=== PATIENT | female | born 1995 | race Caucasian/White ===

== ENCOUNTER 2024-04-27 11:42 | Outpatient (CLI) | payer OTHER, SELFPAY ==
--- NOTE | ~2024-04-27 | US_ITS ---
EXAMINATION: US OB transvaginal DATE: 04/27/2024 12:09 INDICATION: Uncertain dates. . TECHNIQUE: Real-time transvaginal pelvic ultrasound was performed. COMPARISON: None. FINDINGS: The uterus measures 9.1 x 6.1 x 6.7 cm. There is an intrauterine gestational sac. A yolk sac is ident ified. The crown rump length measures 2.1 cm, which correlates with an estimated gestational a ge of 8 weeks and 5 day(s) (+/-) 5 day(s). heart motion is identified measuring 178 beats per m inute (bpm) by M-mode Doppler. There is a small subchronic hematoma. The ovaries are not visualized. There is no free fluid in the pelvis. IMPRESSION: 1. Single living intrauterine gestation with estimated date of delivery of 12/02/2024. 2. Small subchronic hematoma. Reviewed, dictated and finalized at location A. IMPRESSION: 1. Single living intrauterine gestation with estimated date of delivery of 11/21. 2. Small subchronic hematoma.
== END 2024-04-27 11:43 | disposition home or self-care (01) ==
PROVIDERS: PCP Nurse Practitioner; Visit Provider Nurse Practitioner
DX: Z36.9 Encounter for antenatal screening, unspecified (principal); Z3A.00 Weeks of gestation of pregnancy not specified
CPT/HCPCS: 76817

== ENCOUNTER 2024-05-22 08:12 | Outpatient (CLI) | payer OTHER, SELFPAY ==
--- NOTE | ~2024-05-22 | US_ITS ---
EXAMINATION: US OB limited DATE: 05/22/2024 08:32 INDICATION: Subchronic hematoma. TECHNIQUE: Real-time transabdominal pelvic ultrasound was performed. COMPARISON: Ultrasound 04/27/2024 FINDINGS: The uterus measures 11.6 x 8.4 x 10.1 cm. There is an intrauterine gestational sac with fetus. heart motion is identified measuring 167 beats per minute (bpm) by M-mode Doppler. There is a small subchronic hematoma measuring 2.8 x 1.3 x 2.0 cm. The ovaries are not visualized. There is no free fl uid in the pelvis. IMPRESSION: 1. Single living intrauterine gestation with estimated date of delivery of 12/02/2024 based on the ul trasound from 04/27/2024. 2. Small subchronic hematoma. Reviewed, dictated and finalized at location A. IMPRESSION: 1. Single living intrauterine gestation with estimated date of delivery of 11/21 based on the ultrasound from 04/27/2024. 2. Small subchronic hematoma.
== END 2024-05-22 08:13 | disposition home or self-care (01) ==
LOC: MICIMG 08:12
PROVIDERS: PCP Nurse Practitioner; Visit Provider Obstetrics & Gynecology Gynecology
DX: O36.8910 Maternal care for other specified fetal problems, first trimester, not applicable or unspecified (principal)
CPT/HCPCS: 76815

== ENCOUNTER 2024-06-12 10:23 | Outpatient (CLI) | payer OTHER, SELFPAY ==
--- NOTE | ~2024-06-12 | US_ITS ---
US OB limited 06/12/2024 10:49 Indication: Follow-up subchorionic hematoma Procedure: Limited obstetrical ultrasound using transabdominal technique Comparison: 05/22/2024 Findings: There is a single living intrauterine in breech presentation. Placenta is posterior, measur ing 3.8 cm to the cervix. Amniotic fluid volume is normal subjectively. heart rate 165 BPM. Int erval resolution of subchorionic hematoma. Impression: 1: Interval resolution of subchorionic hematoma. Reviewed, dictated and finalized at location B. Impression: 1: Interval resolution of subchorionic hematoma.
== END 2024-06-12 10:24 | disposition home or self-care (01) ==
LOC: MICIMG 10:25
PROVIDERS: PCP Obstetrics & Gynecology Gynecology; Visit Provider Obstetrics & Gynecology Gynecology
DX: O36.8910 Maternal care for other specified fetal problems, first trimester, not applicable or unspecified (principal); Z3A.00 Weeks of gestation of pregnancy not specified
CPT/HCPCS: 76815

== ENCOUNTER 2024-07-17 10:20 | Outpatient (CLI) | payer OTHER, SELFPAY ==
--- NOTE | ~2024-07-17 | US_ITS ---
EXAMINATION: US OB /maternal detail DATE: 07/17/2024 11:02 INDICATION: anatomic survey. TECHNIQUE: Real-time ultrasound of the pelvis was performed. COMPARISON: Ultrasound 06/12/2024, 05/22/2024, 04/27/2024 FINDINGS: There is a single living fetus in vertex presentation. The placenta is posterior, 5.7 cm from the ce rvix. The cervical length is 3.5 cm on transabdominal images, which is normal. heart rate is 16 8 beats per minute (bpm). The amniotic fluid volume is subjectively normal. The following biometric data were obtained: Biparietal diameter (BPD): 4.5 cm; head circumference (HC): 17.8 cm; abdominal circumference (AC): 16 .5 cm; femur length (FL): 3.5 cm. These measurements are concordant. Estimated weight is 405 g +/- 61 g, which correlates with the 90th percentile when 12/02/24 is u sed as estimated date of delivery. As single measurements, these parameters are each equal to the following estimated gestational ages: BPD: 19 weeks 4 days. HC: 20 weeks 2 days. AC: 21 weeks 4 days. FL: 21 weeks 1 days. estimated gestational age based solely on measurements from this exam is 20 weeks 5 days +/- 1 weeks 3 days. There is suboptimal visualization of the intracranial structures. The cerebral ventricles, cerebellum , cisterna magna, nuchal fold, and spine are normal. The heart is normal. The diaphragm, stomach, kid neys, and bladder are normal. There are two umbilical arteries to yield a 3-vessel cord. The cord ins ertion is normal. IMPRESSION: 1. Single living fetus in vertex presentation. 2. Estimated weight is 405 g +/- 61 g, which correlates with the 90th percentile when 12/02/24 is used as estimated date of delivery. This date was set by ultrasound on 04/27/2024. 3. Normal anatomic survey. Reviewed, dictated and finalized at location A. RVISOR CAB IMPRESSION: 1. Single living fetus in vertex presentation. 2. Estimated weight is 405 g +/- 61 g, which correlates with the 90th rcentile when 12/02/24 is used as estimated date of delivery. This date was set by ultrasound on 04/27/2024. 3. Normal anatomic survey.
== END 2024-07-17 10:21 | disposition home or self-care (01) ==
LOC: MICIMG 10:23
PROVIDERS: PCP Obstetrics & Gynecology Gynecology; Visit Provider Obstetrics & Gynecology Gynecology
DX: Z36.9 Encounter for antenatal screening, unspecified (principal)
CPT/HCPCS: 76805

== ENCOUNTER 2024-08-11 10:22 | Outpatient (CLI) | payer OTHER, SELFPAY ==
--- NOTE | ~2024-08-11 | US_ITS ---
US OB limited 08/11/2024 10:44 Indication: Follow-up survey evaluation Procedure: High-resolution Limited obstetrical ultrasound Comparison: Ultrasound dated 07/17/2024 Findings: There is a single living intrauterine in vertex presentation with heart rat e of 164 BPM. Placenta is posterior measuring 5.6 cm to the cervix. Amniotic fluid is subjectively no rmal. Limited survey demonstrates normal intracranial structures without abnormality. Impression: 1: Single living intrauterine in vertex presentation. 2: Normal limited survey of the intracranial structures. Reviewed, dictated and finalized at location B. POSTPARTUM Impression: 1: Single living intrauterine in vertex presentation. 2: Normal limited survey of the intracranial structures.
== END 2024-08-11 10:23 | disposition home or self-care (01) ==
LOC: MICIMG 10:23
PROVIDERS: PCP Obstetrics & Gynecology Gynecology; Visit Provider Obstetrics & Gynecology Gynecology
DX: Z36.2 Encounter for other antenatal screening follow-up (principal)
CPT/HCPCS: 76815

== ENCOUNTER 2024-11-09 10:40 | Outpatient (CLI) | payer OTHER, SELFPAY ==
[2024-11-09] VITALS (14 sets, daily range): BP systolic 116–159; BP diastolic 66–85; PULSE 65–79; BMI 36.3
[2024-11-09 11:32] LABS: Basophils Percent Auto 0.3 % (0.2-1.2); Eosinophils Absolute Auto 0.1 K/mm3 (0-0.3); Eosinophils Percent Auto 0.4 % (0-4.4); Hematocrit 39.6 % (37.0-47.0); Hemoglobin 13.2 g/dL (12.0-15.0); Immature Granulocyte Absolute 0.21 K/mm3 (0.00-0.031); Immature Granulocyte Percent A 1.6 % (0-0.5); Lymphocytes Absolute Auto 1.95 K/mm3 (0.9-3.2); Lymphocytes Percent Auto 14.8 % (18.3-44.2); Mean Corpuscular HGB Conc 33.3 g/dl (32-36); Mean Corpuscular Hemoglobin 28.9 pg (26-34); Mean Corpuscular Volume 86.7 fl (80-100); Mean Platelet Volume 10.1 fl (7.4-10.4); Monocytes Absolute Auto 0.7 K/mm3 (0.1-0.6); Monocytes Percent Auto 4.9 % (2.6-8.5); Neutrophils Absolute Auto 10.3 K/mm3 (1.3-6.7); Platelet Count Result 271 k/mm3 (150-375); Red Blood Count 4.57 M/mm3 (4.2-5.4); Red Cell Distribution Width 12.6 % (11.5-14.5); White Blood Count 13.2 K/mm3 (4.5-10.0)
--- OUTSIDE RECORDS SUMMARY | 2024-11-09 11:32 | XMS_ITS | Encounter Summary ---
Author Organization [facility] Address [facility] [place] [address] Care Team Providers Care Serology Technician Name Role Phone None, Provider Primary Care Provider Obdulia Aleman [facility] Primary Care Provider + Encounter Details Date Type Department Care Team (Late st Contact Info) Description 10/20/2023 Nuvosun Message [facility] [address] [place] [address] [place] [address] [place] [address] Leg Infection Followup Social History Tobacco Use Types Packs/Day Years Used Date Smoking Tobacco: Never Passive Smoke Exposure: Never Smokeless Tobacco: Never PHQ-2 Answer Date Recorded Patient Health Questionnaire-2 Score 0 10/19/2023 Comments Unknown Sex and Gender Information Value Date Recorded Sex Assigned at Female 09/25/2024 7:32 AM SOLE PAINTER Legal Sex Female 6:32 PM CDT Gender Identity Female 09/25/2024 7:32 AM SOLE PAINTER Sexual Orientation Not on file documented as of this encounter Plan of Treatment Not on file documented as of this encounter Visit Diagnoses Not on filedocumented in this encounter Additional Health Concerns Infection Onset Date Last Indicated Resolved Time COVID-19 Rule Out 10/21/2023 10/21/2023 10/21/2023 9:25 AM SOLE PAINTER documented as of this encounter Care Teams Serology Technician Relationship Specialty Start Date End Date None, Provider, PCP - General UNKNOWN PHYSICIAN SPECIALTY 09/03/23 Obdulia Jean, [employer]ES[employer] DRIER OPERATOR- [address] [place] [address] PCP - General NURSE PRACTITIONER 10/22/23 documented as of this encounter
--- OUTSIDE RECORDS SUMMARY | 2024-11-09 11:32 | XMS_ITS | Clinical Summary ---
Author Organization [facility] Address [facility] [place] [address] Care Team Providers Care Sheet Metal Production Worker Name Role Phone Obdulia Jean Bharat [facility] Primary Care Provider + Allergies Active Allergy Reactions Criticality Noted Date Comments Sulfa Antibiotics GI Upset 02/28/2016 Sulfamethoxazole-Trimethop rim Nausea and Vomiting,Other (see comment) Low 12/24/2016 High fever Medications vitamin ( PLUS) 27-1 MG tablet Take 1 tablet by mouth daily. Active vitamin D3 (VITAMIN D) 25 mcg tablet Take 1 tablet (25 mcg total) by mouth daily. Active Active Problems Problem Noted Date Diagnosed Date Otitis externa, chronic 08/09/2014 Dysfunction of Eustachian tube, unspecified late rality 06/13/2013 Other specified irregular menstruation 3 Exercise-induced asthma with acute exacerbation (HHS/HCC) 04/10/2013 Allergic rhinitis 05/26/2012 Estimated Date of Delivery Comme nts Yes 12/03/2024 Resolved Problems Problem Noted Date Diagnosed Date Resolved Date Closed displaced fracture of neck of fifth metacarpal bone of right hand 12/22/2016 10/19/2023 Right hand pain 12/22/2016 09/25/2024 Sinusitis 04/02/2016 09/25/2024 Dyspepsia 09/12/2013 09/25/2024 Reactive airway disease (HHS/HCC) 04/10/2013 09/25/2024 Acne 05/27/2012 09/25/2024 Encounters Date Type Department Care Team Description 09/25/2024 9:40 AM ASSISTANT PROFESSOR OF RADIOLOGY Office Visit [address] [place] [address] Obdulia Jean, QUARTZ MINER- Cellulitis (Poss cellulitis on L leg. Did get bigger from Wednesday but mentions that the size has slowed down since this. ) 09/25/2024 Travel 09/14/2024 6:19 AM ASSISTANT PROFESSOR OF RADIOLOGY - 09/14/2024 11:59 PM ASSISTANT PROFESSOR OF RADIOLOGY Hospital Encounter [facility] [address] [place] [id number] Evelin Sullivan MD Discharge Disposition: Home or Self Care (Routine Discharge) 09/14/2024 Orders Only [facility] [address] [place] [address] Evelin Sullivan MD 09/14/2024 Travel 09/08/2024 6:35 AM ASSISTANT PROFESSOR OF RADIOLOGY - 09/08/2024 11:59 PM ASSISTANT PROFESSOR OF RADIOLOGY Hospital Encounter [address] [address] Olga Marinelli, JAIR Discharge Disposition: Home or Self Care (Routine Discharge) 09/08/2024 Orders Only [facility] [address] [place] [address] Olga Marinelli CNM 09/08/2024 Travel from Last 3 Months Immunizations Name Administration Dates Next Due Dtap (Acel-Immune) 11/16/2000 Dtp/Hib (Tetramune) 04/24/1997,1996,1995,1996 Hepatitis B Pediatric 1996,1996,0610/1995 Influenza Adult (Generic) 06/03/2022,05/31/2016 MMR (MMRII) 11/16/2000,02/20/1997 Polio IPV (Ipol) 11/16/2000 Polio Opv (Generic) 1996,1996,1995 Tdap (Adacel) 10/19/2023 Family History Medical History Relation Comments Melanoma Brother Melanoma Father Hodgkin's lymphoma Maternal Grandfather Breast Cancer Maternal Grandmother Lymphoma Mother Pancreatic cancer Paternal Grandfather Melanoma Paternal Grandmother Relation Status Comments Brother Father Maternal Grandfather Maternal Grandmother Mother Paternal Grandfather Paternal Grandmother Social History Tobacco Use Types Packs/Day Years Used Date Smoking Tobacco: Never Passive Smoke Exposure: Never Smokeless Tobacco: Never Tobacco Cessation:Counseling Given: No PHQ-2 Answer Date Recorded Patient Health Questionnaire-2 Score 0 09/25/2024 Estimated Date of Delivery Comme nts Yes 12/03/2024 Sex and Gender Information Value Date Recorded Sex Assigned at Female 09/25/2024 7:32 AM ASSISTANT PROFESSOR OF RADIOLOGY Legal Sex Female 6:32 PM CDT Gender Identity Female 09/25/2024 7:32 AM ASSISTANT PROFESSOR OF RADIOLOGY Sexual Orientation Not on file Last Filed Vital Signs Vital Sign Reading Time Taken Comments Blood Pressure 121/75 09/25/2024 9:35 AM ASSISTANT PROFESSOR OF RADIOLOGY Pulse 64 09/25/2024 9:35 AM ASSISTANT PROFESSOR OF RADIOLOGY Temperature 36.1 C (97 F) 09/25/2024 9:35 AM ASSISTANT PROFESSOR OF RADIOLOGY Respiratory Rate 22 09/25/2024 9:35 AM ASSISTANT PROFESSOR OF RADIOLOGY Oxygen Saturation 98% 09/25/2024 9:35 AM ASSISTANT PROFESSOR OF RADIOLOGY Inhaled Oxygen Concentration - - Weight 112.1 kg (247 lb 2 oz) 09/25/2024 9:35 AM ASSISTANT PROFESSOR OF RADIOLOGY Height 180.3 cm (5' 11 ) 09/25/2024 9:35 AM ASSISTANT PROFESSOR OF RADIOLOGY Body Mass Index 34.47 09/25/2024 9:35 AM ASSISTANT PROFESSOR OF RADIOLOGY Plan of Treatment Health Maintenance Due Date Last Done Comments Pneumococcal Vaccine: Pediatrics (0 to 5 Years) and At-Risk Patients (6 to 64 Years) (1 of 2 - PCV) 01/21/2002 COVID-19 Vaccine (3 - 2023- season) 2024 06/12/2021, 05/22/2021 Influenza Adult (#1) 2024 06/03/2022, 05/31/20 16 Annual Physical 10/21/2024 10/22/2023 Cervical Cancer Screening Pap Smear (Age 21 to 29) Every 3 Years 09/09/2026 Cervical Cancer Screening 09/09/2026 DTaP, Tdap and Td Vaccines (3 - Td or Tdap) 10/19/2033 10/19/2023, 11/16/2000, 04/24/1997, Additional history exists Hepatitis B Vaccines Completed 1996, 1996, 1996 Hepatitis C Completed 05/26/2024 PHQ-2 (Physician [place]) Completed 09/25/2024 HPV Vaccines Aged Out No longer eligi ble based on patient's age to complete this topic Meningococcal B Vaccine Aged Out No l onger eligible based on patient's age to complete this topic Meningococcal Vaccine Aged Out No marian sheri eligible based on patient's age to complete this topic RSV Immunization or 60+ Years (No Doses Required) Completed RSV Immunizations Under 20 Months Aged Out No longer eligible based on patient's age to complete this topic Procedures Procedure Name Priority Date/Time Associated Diagnosis Comments HC GLUCOSE TOLERANCE ADDL SPEC Routine 09/14/2024 9:33 AM ASSISTANT PROFESSOR OF RADIOLOGY GLUCOSE TOLERANCE 2 HR OB Routine 09/14/2024 8:34 AM ASSISTANT PROFESSOR OF RADIOLOGY GLUCOSE TOLERANCE 1 HR OB Routine 09/14/2024 7:40 AM ASSISTANT PROFESSOR OF RADIOLOGY GLUCOSE TOLERANCE TEST 3 HR Routine 09/14/2024 6:35 AM ASSISTANT PROFESSOR OF RADIOLOGY Encounter for supervision of normal first in third trimester ([facility]) HEMOGLOBIN AND HEMATOCRIT Routine 09/08/2024 7:54 AM ASSISTANT PROFESSOR OF RADIOLOGY screening encounter ([facility]) GLUCOSE 1 HR PP Routine 09/08/2024 7:54 AM ASSISTANT PROFESSOR OF RADIOLOGY screening encounter ([facility]) SYPHILIS AB (DIAGNOSTIC) WITH CASCADING REFLEX Routine 09/08/2024 7:54 AM ASSISTANT PROFESSOR OF RADIOLOGY screening encounter ([facility]) VITAMIN D, 25 OH Routine 09/08/2024 7:54 AM ASSISTANT PROFESSOR OF RADIOLOGY screening encounter ([facility]) HIV 1 ANTIGEN(S), WITH HIV-1 AND HIV-2 ANTIBODIES Routine 09/08/2024 7:54 AM ASSISTANT PROFESSOR OF RADIOLOGY screening encounter ([facility]) HEPATITIS C ANTIBODY Routine 05/26/2024 6:47 AM CDT Encounter for screening of mother (HHS/HCC) from Last 3 Months or Most Recently Relevant to Health Maintenance Results * GLUCOSE TOLERANCE TEST, 3HR OB (09/14/2024 9:33 AM ASSISTANT PROFESSOR OF RADIOLOGY) GLUCOSE 3 HR 62 mg/dL 09/14/2024 10:27 AM ASSISTANT PROFESSOR OF RADIOLOGY [facility] 09/14/2024 9:33 AM ASSISTANT PROFESSOR OF RADIOLOGY us Evelin Sullivan MD LABORATORY Final Res ult [facility] [address] [place] [address], [place] [phone] * GLUCOSE TOLERANCE 2 HR OB (09/14/2024 8:34 AM ASSISTANT PROFESSOR OF RADIOLOGY) GLUCOSE 2 HR 119 mg/dL 09/14/2024 9:15 AM ASSISTANT PROFESSOR OF RADIOLOGY [facility] 09/14/2024 8:34 AM ASSISTANT PROFESSOR OF RADIOLOGY us Evelin Sullivan MD LABORATORY Final Res ult [facility] [address] [place] [address], [place] [phone] * GLUCOSE TOLERANCE 1 HR OB (09/14/2024 7:40 AM ASSISTANT PROFESSOR OF RADIOLOGY) GLUCOSE 1 HR 152 mg/dL 09/14/2024 8:39 AM ASSISTANT PROFESSOR OF RADIOLOGY [facility] 09/14/2024 7:40 AM ASSISTANT PROFESSOR OF RADIOLOGY us Evelin Sullivan MD LABORATORY Final Res ult [facility] [address] [place] [address], [place] [phone] * GLUCOSE TOLERANCE TEST 3 HR GESTATIONAL (09/14/2024 6:35 AM ASSISTANT PROFESSOR OF RADIOLOGY) GLUCOSE FASTING 83 70 - 99 mg/dL 09/14/2024 8:20 AM ASSISTANT PROFESSOR OF RADIOLOGY [facility] AMOUNT GIVEN 100 g 09/14/2024 8:20 AM ASSISTANT PROFESSOR OF RADIOLOGY [facility] PATHOLOGIST COMMENT 09/14 8:20 AM ASSISTANT PROFESSOR OF RADIOLOGY [facility] Comment: INTERPRETATION CRITERIA : CRITERIA FOR THE DIAGNOSIS OF GESTATIONAL DIABETES GLUCOSE TOLERANCE: FASTING GLUCOSE > 95 1HR GLUCOSE >180 2HR GLUCOSE >155 3HR GLUCOSE >140 NOTE:TWO OR MORE LEVELS HIGHER THAN DIAGNOSTIC CRITERIA INDICATE GESTATIONAL DIABETES. (REFERENCES:[facility], [employer].) 09/14/2024 6:35 AM ASSISTANT PROFESSOR OF RADIOLOGY Evelin Sullivan MD LABORATORY Final Res ult Performing Organization Address City/[facility]/ZIP Co de Phone Number [facility] [address] [place] [address], [place] [phone] * SYPHILIS AB (DIAGNOSTIC) WITH CASCADING REFLEX (09/08/2024 7:54 AM ASSISTANT PROFESSOR OF RADIOLOGY) SYPHILIS IGG IGM AB NON-REACTI VE NON-REACTI VE 09/08/2024 2:55 PM ASSISTANT PROFESSOR OF RADIOLOGY [facility] Comment: No serologic evidence of syphilis. No follow-up necessary unless clinically indicated. 09/08/2024 7:54 AM ASSISTANT PROFESSOR OF RADIOLOGY Olga Marinelli CNM LABORATORY Final Result Performing Organization Address City/[facility]/ZIP Co de Phone Number [facility] [address] [place] [address], [place] [phone] * (ABNORMAL) GLUCOSE 1 HR PP (09/08/2024 7:54 AM ASSISTANT PROFESSOR OF RADIOLOGY) GLUCOSE 1 HOUR POST DOSE 179(H) <130 MG/DL 09/08/2024 8:42 AM ASSISTANT PROFESSOR OF RADIOLOGY [facility] Comment:NORMAL ESTABLISHED F OR PATIENTS 09/08/2024 7:54 AM ASSISTANT PROFESSOR OF RADIOLOGY Olga BACH LABORATORY Final Result [facility] [address] [place] [address], [place] [phone] * HIV 1 ANTIGEN(S), WITH HIV-1 AND HIV-2 ANTIBODIES (09/08/2024 7:54 AM ASSISTANT PROFESSOR OF RADIOLOGY) HIV 1/2 AB+ HIV1 P24 AG NON-REACTI VE NON-REACTI VE 09/08/2024 3:28 PM ASSISTANT PROFESSOR OF RADIOLOGY [facility] 09/08/2024 7:54 AM ASSISTANT PROFESSOR OF RADIOLOGY Olga BACH LABORATORY Final Result Performing Organization Address City/[facility]/ZIP Co de Phone Number [facility] [address] [place] [address], [place] [phone] * HEMOGLOBIN AND HEMATOCRIT (09/08/2024 7:54 AM ASSISTANT PROFESSOR OF RADIOLOGY) HGB 13.0 12.0 - 16.0 G/DL 09/08/2024 8:44 AM ASSISTANT PROFESSOR OF RADIOLOGY [facility] HCT 39.4 38.0 - 48.0 % 09/08/2024 8:44 AM ASSISTANT PROFESSOR OF RADIOLOGY [facility] 09/08/2024 7:54 AM ASSISTANT PROFESSOR OF RADIOLOGY Olga BACH LABORATORY Final Result [facility] [address] [place] [address], [place] [phone] * VITAMIN D, 25 OH (09/08/2024 7:54 AM ASSISTANT PROFESSOR OF RADIOLOGY) VITAMIN D 25 HYDROXY S/P/B 40 30 - 100 NG/ML 09/08/2024 9:16 AM ASSISTANT PROFESSOR OF RADIOLOGY [facility] Comment: INTERPRETATION DEFICIENT <20 INSUFFICIENT 20-29 SUFFICIENT 30-100 09/08/2024 7:54 AM ASSISTANT PROFESSOR OF RADIOLOGY Olga Marinelli [facility] Final Result [facility] [address] [place] [address], * HEPATITIS C ANTIBODY (05/26/2024 6:47 AM CDT) Pathologist [facility] HEPATITIS C AB NON-REACTI VE NON-REACTI VE 05/26/2024 3:40 PM CDT [facility] 05/26/2024 6:47 AM CDT Olga Marinelli [facility] Final Result [facility] [address] [place] [address], [place] [phone] from Last 3 Months or Most Recently Relevant to Health Maintenance Insurance Care Teams Sheet Metal Production Worker Relationship Specialty Start Date End Date Obdulia Jean, QUARTZ MINER- [address] [place] [address] PCP - General NURSE PRACTITIONER 10/22/23
[2024-11-09 11:44] LABS: Alanine Aminotransferase 18 U/L (6-35); Albumin Level 3.6 g/dL (3.5-5.1); Alkaline Phosphatase 134 U/L (38-126); Anion Gap 11 mmol/L (4-12); Aspartate Amino Transferase 23 U/L (14-36); Bilirubin,Total 0.5 mg/dL (0.2-1.3); Blood Urea Nitrogen 15 mg/dL (7-17); Carbon Dioxide 17 mmol/L (22-30); Chloride 106 mmol/L (98-107); Estimated CRCL calculation 158 ml/min; Estimated Glomerular Filt Rate > 60; Glucose 138 mg/dL (65-110); Potassium 4.2 mmol/L (3.4-5.0); Sodium 134 mmol/L (137-145); Uric Acid 4.4 mg/dL (2.5-7.5)
[2024-11-09 13:08] LABS: Creatinine Urine 52.6 mg/dL; Total Protein Urine Random 24 mg/dL; Ur Ttl Prot Creatinine Ratio 0.46 mg/mg (0-0.20)
[2024-11-09 13:13] LABS: Add Urine Microscopic? YES; Appearance Urine Clear (Clear); Bacteria Urine None Seen /hpf; Bilirubin Urine Negative (Negative); Blood Urine 3+ (Negative); Color Urine Yellow (Yellow); Glucose Urine UA Negative (Negative); Ketones Urine Negative (Negative); Leukocyte Esterase Ur Trace LEU/UL (Negative); Nitrate Urine Negative (Negative); Non Pathogenic Casts 0-2; Protein Urine Negative (Negative); Specific Grav Ur 1.011 (1.001-1.035); Squamous Epithelial Cell Urine Moderate /hpf (Few); Urobilinogen Urine 0.2 mg/dL (<2.0); WBC Urine 0-5 /hpf (0-3); pH Urine 5.5 (5.0-9.0)
--- NOTE | 2024-11-09 14:16 | PC.NURSE ---
Dr. Sullivan returned page. Notified of Pt. BP 120s-130s/70s, notified of blood and urine results and reactive FHR on the tracing. Explained pt. had no urine protein but did have 3+ RBC and a protein creatinine ratio of 0.46. Pt. still having bloody show after pelvic exam in the office. Given order to begin 24 hour urine collection on 11/10/2024.
== END 2024-11-09 14:32 | disposition home or self-care (01) ==
LOC: ANHOBOP 10:45 → ANHOBPP 10:49
PROVIDERS: Visit Provider Obstetrics & Gynecology Gynecology
DX: O13.9 Gestational [pregnancy-induced] hypertension without significant proteinuria, unspecified trimester (principal); Z3A.00 Weeks of gestation of pregnancy not specified
CPT/HCPCS: 36415; 59025; 80053; 81001; 82570; 84156; 84550; 85025; 99199

== ENCOUNTER 2024-11-10 06:04 | Observation (INO) | payer OTHER, SELFPAY ==
[2024-11-10] VITALS (11 sets, daily range): BP systolic 99–132; BP diastolic 53–72; PULSE 79–88; TEMP 36.9–38.5; BMI 36.7
--- OUTSIDE RECORDS SUMMARY | 2024-11-10 06:16 | XMS_ITS | Encounter Summary ---
Author Organization [facility] Address [facility] [place] [address] Care Team Providers Care Production Cell Leader Name Role Phone None, Provider Primary Care Provider Obdulia Aleman [facility] Primary Care Provider + Encounter Details Date Type Department Care Team (Late st Contact Info) Description 10/20/2023 CereScan Message [facility] [address] [place] [address] [place] [address] [place] [address] Leg Infection Followup Social History Tobacco Use Types Packs/Day Years Used Date Smoking Tobacco: Never Passive Smoke Exposure: Never Smokeless Tobacco: Never PHQ-2 Answer Date Recorded Patient Health Questionnaire-2 Score 0 10/19/2023 Comments Unknown Sex and Gender Information Value Date Recorded Sex Assigned at Female 09/25/2024 7:32 AM GYNECOLOGIST Legal Sex Female 6:32 PM CDT Gender Identity Female 09/25/2024 7:32 AM GYNECOLOGIST Sexual Orientation Not on file documented as of this encounter Plan of Treatment Not on file documented as of this encounter Visit Diagnoses Not on filedocumented in this encounter Additional Health Concerns Infection Onset Date Last Indicated Resolved Time COVID-19 Rule Out 10/21/2023 10/21/2023 10/21/2023 9:25 AM GYNECOLOGIST documented as of this encounter Care Teams Production Cell Leader Relationship Specialty Start Date End Date None, Provider, PCP - General UNKNOWN PHYSICIAN SPECIALTY 09/03/23 Obdulia Jean, MOTOR SETTER- [address] [place] [address] PCP - General NURSE PRACTITIONER 10/22/23 documented as of this encounter
--- OUTSIDE RECORDS SUMMARY | 2024-11-10 06:16 | XMS_ITS | Clinical Summary ---
Author Organization [facility] Address [facility] [place] [address] Care Team Providers Care Title Clerk Automobile Name Role Phone Obdulia Jean Bharat [facility] Primary Care Provider + Allergies Active Allergy [...] Department Care Team Description 09/25/2024 9:40 AM TRUCK HOP Office Visit [address] [place] [address] Obdulia Jean, MUSEUM ARCHIVIST- Cellulitis (Poss cellulitis on L leg. Did get bigger from Wednesday but mentions that the size has slowed down since this. ) 09/25/2024 Travel 09/14/2024 6:19 AM TRUCK HOP - 09/14/2024 11:59 PM TRUCK HOP Hospital Encounter [facility] [address] [place] [address] Evelin Sullivan MD Discharge Disposition: Home or Self Care (Routine Discharge) 09/14/2024 Orders Only [facility] [address] [place] [address] Evelin Sullivan MD 09/14/2024 Travel 09/08/2024 6:35 AM TRUCK HOP - 09/08/2024 11:59 PM TRUCK HOP Hospital Encounter [address] [address] Olga Marinelli, JAIR Discharge Disposition: Home or Self Care (Routine Discharge) 09/08/2024 Orders Only [facility] [address] [place] [address] Olga Marinelli CNM 09/08/2024 Travel from Last [...] Sex Assigned at Female 09/25/2024 7:32 AM TRUCK HOP Legal Sex Female 6:32 PM CDT Gender Identity Female 09/25/2024 7:32 AM TRUCK HOP Sexual Orientation Not on file Last Filed Vital Signs Vital Sign Reading Time Taken Comments Blood Pressure 121/75 09/25/2024 9:35 AM TRUCK HOP Pulse 64 09/25/2024 9:35 AM TRUCK HOP Temperature 36.1 C (97 F) 09/25/2024 9:35 AM TRUCK HOP Respiratory Rate 22 09/25/2024 9:35 AM TRUCK HOP Oxygen Saturation 98% 09/25/2024 9:35 AM TRUCK HOP Inhaled Oxygen Concentration - - Weight 112.1 kg (247 lb 2 oz) 09/25/2024 9:35 AM TRUCK HOP Height 180.3 cm (5' 11 ) 09/25/2024 9:35 AM TRUCK HOP Body Mass Index 34.47 09/25/2024 9:35 AM TRUCK HOP Plan of Treatment Health Maintenance Due Date [...] 1995 Hepatitis C Completed 05/26/2024 PHQ-2 (Physician [place]) Completed 09/25/2024 HPV Vaccines Aged Out No [...] TOLERANCE ADDL SPEC Routine 09/14/2024 9:33 AM TRUCK HOP GLUCOSE TOLERANCE 2 HR OB Routine 09/14/2024 8:34 AM TRUCK HOP GLUCOSE TOLERANCE 1 HR OB Routine 09/14/2024 7:40 AM TRUCK HOP GLUCOSE TOLERANCE TEST 3 HR Routine 09/14/2024 6:35 AM TRUCK HOP Encounter for supervision of normal first in third trimester ([facility]) HEMOGLOBIN AND HEMATOCRIT Routine 09/08/2024 7:54 AM TRUCK HOP screening encounter ([facility]) GLUCOSE 1 HR PP Routine 09/08/2024 7:54 AM TRUCK HOP screening encounter ([facility]) SYPHILIS AB (DIAGNOSTIC) WITH CASCADING REFLEX Routine 09/08/2024 7:54 AM TRUCK HOP screening encounter ([facility]) VITAMIN D, 25 OH Routine 09/08/2024 7:54 AM TRUCK HOP screening encounter ([facility]) HIV 1 ANTIGEN(S), WITH HIV-1 AND HIV-2 ANTIBODIES Routine 09/08/2024 7:54 AM TRUCK HOP screening encounter ([facility]) HEPATITIS C ANTIBODY Routine 05/26/2024 6:47 AM CDT Encounter for screening of mother (HHS/HCC) from Last 3 Months or Most Recently Relevant to Health Maintenance Results * GLUCOSE TOLERANCE TEST, 3HR OB (09/14/2024 9:33 AM TRUCK HOP) GLUCOSE 3 HR 62 mg/dL 09/14/2024 10:27 AM TRUCK HOP [facility] 09/14/2024 9:33 AM TRUCK HOP us Evelin Sullivan MD LABORATORY Final Res ult [facility] [address] [place] [address], [place] [phone] * GLUCOSE TOLERANCE 2 HR OB (09/14/2024 8:34 AM TRUCK HOP) GLUCOSE 2 HR 119 mg/dL 09/14/2024 9:15 AM TRUCK HOP [facility] 09/14/2024 8:34 AM TRUCK HOP us Evelin Sullivan MD LABORATORY Final Res ult [facility] [address] [place] [address], [place] [phone] * GLUCOSE TOLERANCE 1 HR OB (09/14/2024 7:40 AM TRUCK HOP) GLUCOSE 1 HR 152 mg/dL 09/14/2024 8:39 AM TRUCK HOP [facility] 09/14/2024 7:40 AM TRUCK HOP us Evelin Sullivan MD LABORATORY Final Res ult [facility] [address] [place] [address], [place] [phone] * GLUCOSE TOLERANCE TEST 3 HR GESTATIONAL (09/14/2024 6:35 AM TRUCK HOP) GLUCOSE FASTING 83 70 - 99 mg/dL 09/14/2024 8:20 AM TRUCK HOP [facility] AMOUNT GIVEN 100 g 09/14/2024 8:20 AM TRUCK HOP [facility] PATHOLOGIST COMMENT 09/14 8:20 AM TRUCK HOP [facility] Comment: INTERPRETATION CRITERIA : CRITERIA FOR THE DIAGNOSIS OF GESTATIONAL DIABETES GLUCOSE TOLERANCE: FASTING GLUCOSE > 95 1HR GLUCOSE >180 2HR GLUCOSE >155 3HR GLUCOSE >140 NOTE:TWO OR MORE LEVELS HIGHER THAN DIAGNOSTIC CRITERIA INDICATE GESTATIONAL DIABETES. (REFERENCES:[facility] OF HEALTH, [employer]IATION.) 09/14/2024 6:35 AM TRUCK HOP Evelin Sullivan MD LABORATORY Final Res ult Performing Organization Address City/[facility]/ZIP Co de Phone Number [facility] [address] [place] [address], [place] [phone] * SYPHILIS AB (DIAGNOSTIC) WITH CASCADING REFLEX (09/08/2024 7:54 AM TRUCK HOP) SYPHILIS IGG IGM AB NON-REACTI VE NON-REACTI VE 09/08/2024 2:55 PM TRUCK HOP [facility] Comment: No serologic evidence of syphilis. No follow-up necessary unless clinically indicated. 09/08/2024 7:54 AM TRUCK HOP Olga Marinelli CNM LABORATORY Final Result Performing Organization Address City/[facility]/ZIP Co de Phone Number [facility] [address] [place] [address], [place] [phone] * (ABNORMAL) GLUCOSE 1 HR PP (09/08/2024 7:54 AM TRUCK HOP) GLUCOSE 1 HOUR POST DOSE 179(H) <130 MG/DL 09/08/2024 8:42 AM TRUCK HOP [facility] Comment:NORMAL ESTABLISHED F OR PATIENTS 09/08/2024 7:54 AM TRUCK HOP Olga BACH LABORATORY Final Result [facility] [address] [place] [address], [place] [phone] * HIV 1 ANTIGEN(S), WITH HIV-1 AND HIV-2 ANTIBODIES (09/08/2024 7:54 AM TRUCK HOP) HIV 1/2 AB+ HIV1 P24 AG NON-REACTI VE NON-REACTI VE 09/08/2024 3:28 PM TRUCK HOP [facility] 09/08/2024 7:54 AM TRUCK HOP Olga BACH LABORATORY Final Result Performing Organization Address City/[facility]/ZIP Co de Phone Number [facility] [address] [place] [address], [place] [phone] * HEMOGLOBIN AND HEMATOCRIT (09/08/2024 7:54 AM TRUCK HOP) HGB 13.0 12.0 - 16.0 G/DL 09/08/2024 8:44 AM TRUCK HOP [facility] HCT 39.4 38.0 - 48.0 % 09/08/2024 8:44 AM TRUCK HOP [facility] 09/08/2024 7:54 AM TRUCK HOP Olga BACH LABORATORY Final Result [facility] [address] [place] [address], [place] [phone] * VITAMIN D, 25 OH (09/08/2024 7:54 AM TRUCK HOP) VITAMIN D 25 HYDROXY S/P/B 40 30 - 100 NG/ML 09/08/2024 9:16 AM TRUCK HOP [facility] Comment: INTERPRETATION DEFICIENT <20 INSUFFICIENT 20-29 SUFFICIENT 30-100 09/08/2024 7:54 AM TRUCK HOP Olga Marinelli [facility] LABORATORY Final Result [facility] [address] [place] [address], * HEPATITIS C ANTIBODY (05/26/2024 6:47 AM CDT) Pathologist [facility] HEPATITIS C AB NON-REACTI VE NON-REACTI VE 05/26/2024 3:40 PM CDT [facility] 05/26/2024 6:47 AM CDT Olga Marinelli [facility]ORAT[facility] Final Result [facility] [address] [place] [address], [place] [phone] from Last 3 Months or Most Recently Relevant to Health Maintenance Insurance Care Teams Title Clerk Automobile Relationship Specialty Start Date End Date Obdulia Jean, MUSEUM ARCHIVIST- [address] [place] [address] PCP - General NURSE PRACTITIONER 10/22/23
--- NOTE | 2024-11-10 07:00 | PC.NURSE ---
Called Dr. Sullivan with pt status. Admitted with chills, body aches, and nausea. tachycardia noted on tracing. Temp 100.2 on admission. Orders received.
[2024-11-10] MEDS: ACETAMINOPHEN 500 MG TABLET 1000 MG PO (07:20)
--- NOTE | 2024-11-10 08:00 | PC.NURSE ---
Dr. Sullivan on unit. Informed of pt temp 101.3, 40min after Tylenol. Orders received.
[2024-11-10 08:07] LABS: Influenza A QL RT-PCR Negative (Negative); Influenza B QL RT-PCR Negative (Negative); RSV RNA, RT-PCR Negative (Negative); SARS-CoV-2 RNA PCR Negative (Negative)
[2024-11-10] MEDS: LACTATED RINGERS 1,000 ML 999 ML IV CONT (08:21)
--- NOTE | 2024-11-10 09:50 | PC.NURSE ---
Dr. Sullivan in department. Informed of nasal swab results and current temp. Tracing reviewed. December D/C home.
--- NOTE | 2024-11-13 11:13 | PM.OBTRLD ---
OB - Triage/Final Diagnosis Visit Information Reason for evaluation: other (nausea and vomiting) Comments/Additional reasons for admission: I have assessed the risk for this patient, Delilah Munguia Dante, and determined that she would benefit from observation care. Evaluation Laboratory results: Laboratory Tests 11/10/24 07:23 Influenza A (RT-PCR) Negative Influenza B (RT-PCR) Negative RSV (RT-PCR) Negative SARS-CoV-2 RNA (RT-PCR) Negative
== END 2024-11-10 10:12 | disposition home or self-care (01) ==
PROVIDERS: Admitting Provider Obstetrics & Gynecology Gynecology; Visit Provider Obstetrics & Gynecology Gynecology
DX: O21.9 Vomiting of pregnancy, unspecified (principal); Z3A.00 Weeks of gestation of pregnancy not specified; Z20.822 Contact with and (suspected) exposure to COVID-19
CPT/HCPCS: 87637; A9270; G0378; G0379; J7120

== ENCOUNTER 2024-11-12 10:19 | Outpatient (CLI) | payer OTHER, SELFPAY ==
--- OUTSIDE RECORDS SUMMARY | 2024-11-12 10:27 | XMS_ITS | Encounter Summary ---
Author Organization [facility] Address [facility] [place] [address] Care Team Providers Care Morning News Producer Name Role Phone None, Provider Primary Care Provider Obdulia Aleman [facility] Primary Care Provider + Encounter Details Date Type Department Care Team (Late st Contact Info) Description 10/20/[address] [facility] [address] [place] [address] [place] [address] [place] [address] Leg Infection Followup Social History Tobacco Use Types Packs/Day Years Used Date Smoking Tobacco: Never Passive Smoke Exposure: Never Smokeless Tobacco: Never PHQ-2 Answer Date Recorded Patient Health Questionnaire-2 Score 0 10/19/2023 Comments Unknown Sex and Gender Information Value Date Recorded Sex Assigned at Female 09/25/2024 7:32 AM BOWLING ALLEY FLOORS INSTALLER Legal Sex Female 6:32 PM CDT Gender Identity Female 09/25/2024 7:32 AM BOWLING ALLEY FLOORS INSTALLER Sexual Orientation Not on file documented as of this encounter Plan of Treatment Not on file documented as of this encounter Visit Diagnoses Not on filedocumented in this encounter Additional Health Concerns Infection Onset Date Last Indicated Resolved Time COVID-19 Rule Out 10/21/2023 10/21/2023 10/21/2023 9:25 AM BOWLING ALLEY FLOORS INSTALLER documented as of this encounter Care Teams Morning News Producer Relationship Specialty Start Date End Date None, Provider, PCP - General UNKNOWN PHYSICIAN SPECIALTY 09/03/23 Obdulia Jean, GUEST SERVICE TEAM LEADER- [address] [place] [address] PCP - General NURSE PRACTITIONER 10/22/23 documented as of this encounter
--- OUTSIDE RECORDS SUMMARY | 2024-11-12 10:27 | XMS_ITS | Clinical Summary ---
Author Organization [facility] Address [facility] [place] [address] Care Team Providers Care Occupational Therapy Professor Name Role Phone Obdulia Jean Bharat [facility] Primary Care Provider + Allergies Active Allergy [...] Department Care Team Description 09/25/2024 9:40 AM FISHER POUND NET OR TRAP Office Visit [address] [place] [address] Obdulia Jean, ROADS SUPERINTENDENT- Cellulitis (Poss cellulitis on L leg. Did get bigger from Wednesday but mentions that the size has slowed down since this. ) 09/25/2024 Travel 09/14/2024 6:19 AM FISHER POUND NET OR TRAP - 09/14/2024 11:59 PM FISHER POUND NET OR TRAP Hospital Encounter [facility] [address] [place] [address] Evelin Sullivan MD Discharge Disposition: Home or Self Care (Routine Discharge) 09/14/2024 Orders Only [facility] [address] [place] [address] Evelin Sullivan MD 09/14/2024 Travel 09/08/2024 6:35 AM FISHER POUND NET OR TRAP - 09/08/2024 11:59 PM FISHER POUND NET OR TRAP Hospital Encounter [address] [address] Olga Marinelli, JAIR Discharge Disposition: Home or Self Care (Routine Discharge) 09/08/2024 Orders Only [facility] [address] [place] [address] Olga Marinelli CNM 09/08/2024 Travel from Last [...] Sex Assigned at Female 09/25/2024 7:32 AM FISHER POUND NET OR TRAP Legal Sex Female 6:32 PM CDT Gender Identity Female 09/25/2024 7:32 AM FISHER POUND NET OR TRAP Sexual Orientation Not on file Last Filed Vital Signs Vital Sign Reading Time Taken Comments Blood Pressure 121/75 09/25/2024 9:35 AM FISHER POUND NET OR TRAP Pulse 64 09/25/2024 9:35 AM FISHER POUND NET OR TRAP Temperature 36.1 C (97 F) 09/25/2024 9:35 AM FISHER POUND NET OR TRAP Respiratory Rate 22 09/25/2024 9:35 AM FISHER POUND NET OR TRAP Oxygen Saturation 98% 09/25/2024 9:35 AM FISHER POUND NET OR TRAP Inhaled Oxygen Concentration - - Weight 112.1 kg (247 lb 2 oz) 09/25/2024 9:35 AM FISHER POUND NET OR TRAP Height 180.3 cm (5' 11 ) 09/25/2024 9:35 AM FISHER POUND NET OR TRAP Body Mass Index 34.47 09/25/2024 9:35 AM FISHER POUND NET OR TRAP Plan of Treatment Health Maintenance Due Date [...] 1995 Hepatitis C Completed 05/26/2024 PHQ-2 (Physician [place]) Completed 09/25/2024 HPV Vaccines Aged Out No [...] TOLERANCE ADDL SPEC Routine 09/14/2024 9:33 AM FISHER POUND NET OR TRAP GLUCOSE TOLERANCE 2 HR OB Routine 09/14/2024 8:34 AM FISHER POUND NET OR TRAP GLUCOSE TOLERANCE 1 HR OB Routine 09/14/2024 7:40 AM FISHER POUND NET OR TRAP GLUCOSE TOLERANCE TEST 3 HR Routine 09/14/2024 6:35 AM FISHER POUND NET OR TRAP Encounter for supervision of normal first in third trimester ([facility]) HEMOGLOBIN AND HEMATOCRIT Routine 09/08/2024 7:54 AM FISHER POUND NET OR TRAP screening encounter ([facility]) GLUCOSE 1 HR PP Routine 09/08/2024 7:54 AM FISHER POUND NET OR TRAP screening encounter ([facility]) SYPHILIS AB (DIAGNOSTIC) WITH CASCADING REFLEX Routine 09/08/2024 7:54 AM FISHER POUND NET OR TRAP screening encounter ([facility]) VITAMIN D, 25 OH Routine 09/08/2024 7:54 AM FISHER POUND NET OR TRAP screening encounter ([facility]) HIV 1 ANTIGEN(S), WITH HIV-1 AND HIV-2 ANTIBODIES Routine 09/08/2024 7:54 AM FISHER POUND NET OR TRAP screening encounter ([facility]) HEPATITIS C ANTIBODY Routine 05/26/2024 6:47 AM CDT Encounter for screening of mother (HHS/HCC) from Last 3 Months or Most Recently Relevant to Health Maintenance Results * GLUCOSE TOLERANCE TEST, 3HR OB (09/14/2024 9:33 AM FISHER POUND NET OR TRAP) GLUCOSE 3 HR 62 mg/dL 09/14/2024 10:27 AM FISHER POUND NET OR TRAP [facility] 09/14/2024 9:33 AM FISHER POUND NET OR TRAP us Evelin Sullivan MD LABORATORY Final Res ult [facility] [address] [place] [address], [place] [phone] * GLUCOSE TOLERANCE 2 HR OB (09/14/2024 8:34 AM FISHER POUND NET OR TRAP) GLUCOSE 2 HR 119 mg/dL 09/14/2024 9:15 AM FISHER POUND NET OR TRAP [facility] 09/14/2024 8:34 AM FISHER POUND NET OR TRAP us Evelin Sullivan MD LABORATORY Final Res ult [facility] [address] [place] [address], [place] [phone] * GLUCOSE TOLERANCE 1 HR OB (09/14/2024 7:40 AM FISHER POUND NET OR TRAP) GLUCOSE 1 HR 152 mg/dL 09/14/2024 8:39 AM FISHER POUND NET OR TRAP [facility] 09/14/2024 7:40 AM FISHER POUND NET OR TRAP us Evelin Sullivan MD LABORATORY Final Res ult [facility] [address] [place] [address], [place] [phone] * GLUCOSE TOLERANCE TEST 3 HR GESTATIONAL (09/14/2024 6:35 AM FISHER POUND NET OR TRAP) GLUCOSE FASTING 83 70 - 99 mg/dL 09/14/2024 8:20 AM FISHER POUND NET OR TRAP [facility] AMOUNT GIVEN 100 g 09/14/2024 8:20 AM FISHER POUND NET OR TRAP [facility] PATHOLOGIST COMMENT 09/14 8:20 AM FISHER POUND NET OR TRAP [facility] Comment: INTERPRETATION CRITERIA : CRITERIA FOR THE DIAGNOSIS OF GESTATIONAL DIABETES GLUCOSE TOLERANCE: FASTING GLUCOSE > 95 1HR GLUCOSE >180 2HR GLUCOSE >155 3HR GLUCOSE >140 NOTE:TWO OR MORE LEVELS HIGHER THAN DIAGNOSTIC CRITERIA INDICATE GESTATIONAL DIABETES. (REFERENCES:NATIONAL INSTITUTES OF HEALTH, [employer] DIABETES ASSOCIATION.) 09/14/2024 6:35 AM FISHER POUND NET OR TRAP Evelin Sullivan MD LABORATORY Final Res ult Performing Organization Address City/[facility]/ZIP Co de Phone Number [facility] [address] [place] [address], [place] [phone] * SYPHILIS AB (DIAGNOSTIC) WITH CASCADING REFLEX (09/08/2024 7:54 AM FISHER POUND NET OR TRAP) SYPHILIS IGG IGM AB NON-REACTI VE NON-REACTI VE 09/08/2024 2:55 PM FISHER POUND NET OR TRAP [facility] Comment: No serologic evidence of syphilis. No follow-up necessary unless clinically indicated. 09/08/2024 7:54 AM FISHER POUND NET OR TRAP Olga Marinelli CNM LABORATORY Final Result Performing Organization Address City/[facility]/ZIP Co de Phone Number [facility] [address] [place] [address], [place] [phone] * (ABNORMAL) GLUCOSE 1 HR PP (09/08/2024 7:54 AM FISHER POUND NET OR TRAP) GLUCOSE 1 HOUR POST DOSE 179(H) <130 MG/DL 09/08/2024 8:42 AM FISHER POUND NET OR TRAP [facility] Comment:NORMAL ESTABLISHED F OR PATIENTS 09/08/2024 7:54 AM FISHER POUND NET OR TRAP Olga BACH LABORATORY Final Result [facility] [address] [place] [address], [place] [phone] * HIV 1 ANTIGEN(S), WITH HIV-1 AND HIV-2 ANTIBODIES (09/08/2024 7:54 AM FISHER POUND NET OR TRAP) HIV 1/2 AB+ HIV1 P24 AG NON-REACTI VE NON-REACTI VE 09/08/2024 3:28 PM FISHER POUND NET OR TRAP [facility] 09/08/2024 7:54 AM FISHER POUND NET OR TRAP Olga BACH LABORATORY Final Result Performing Organization Address City/[facility]/ZIP Co de Phone Number [facility] [address] [place] [address], [place] [phone] * HEMOGLOBIN AND HEMATOCRIT (09/08/2024 7:54 AM FISHER POUND NET OR TRAP) HGB 13.0 12.0 - 16.0 G/DL 09/08/2024 8:44 AM FISHER POUND NET OR TRAP [facility] HCT 39.4 38.0 - 48.0 % 09/08/2024 8:44 AM FISHER POUND NET OR TRAP [facility] 09/08/2024 7:54 AM FISHER POUND NET OR TRAP Olga BACH LABORATORY Final Result [facility] [address] [place] [address], [place] [phone] * VITAMIN D, 25 OH (09/08/2024 7:54 AM FISHER POUND NET OR TRAP) VITAMIN D 25 HYDROXY S/P/B 40 30 - 100 NG/ML 09/08/2024 9:16 AM FISHER POUND NET OR TRAP [facility] Comment: INTERPRETATION DEFICIENT <20 INSUFFICIENT 20-29 SUFFICIENT 30-100 09/08/2024 7:54 AM FISHER POUND NET OR TRAP Olga Marinelli [facility] Final Result [facility] [address] [place] [address], * HEPATITIS C ANTIBODY (05/26/2024 6:47 AM CDT) Pathologist [facility] HEPATITIS C AB NON-REACTI VE NON-REACTI VE 05/26/2024 3:40 PM CDT [facility] 05/26/2024 6:47 AM CDT Olga Marinelli [facility] Final Result [facility] [address] [place] [address], [place] [phone] from Last 3 Months or Most Recently Relevant to Health Maintenance Insurance Care Teams Occupational Therapy Professor Relationship Specialty Start Date End Date Obdulia Jean, ROADS SUPERINTENDENT- [address] [place] [address] PCP - General NURSE PRACTITIONER 10/22/23
[2024-11-12 10:30] VITALS: BMI 36.3
[2024-11-12 10:43] LABS: Collection Time Urine 24 HOURS
[2024-11-12 10:45] LABS: Specific Gravity Ur 1.011; Total Volume 24 Hour Urine 3400 ml
[2024-11-12 10:54] LABS: Creatinine Clearance Urine 132.8 ml/min (75-125); Creatinine Urine 48.9 mg/dL; Patient Weight 260 Lbs; Serum Creat 0.64; Total Protein Urine 24 Hr 646 mg/24hr (28-141); Total Protein Urine Random 19 mg/dL
== END 2024-11-12 10:20 | disposition home or self-care (01) ==
LOC: ANHOBOP 10:25
PROVIDERS: Visit Provider Obstetrics & Gynecology Gynecology
DX: Z34.90 Encounter for supervision of normal pregnancy, unspecified, unspecified trimester (principal); Z3A.00 Weeks of gestation of pregnancy not specified
CPT/HCPCS: 81050; 82575; 84156

== ENCOUNTER 2024-11-13 13:38 | Inpatient (IN) | payer OTHER, SELFPAY ==
[2024-11-13] VITALS (74 sets, daily range): BP systolic 81–154; BP diastolic 24–122; PULSE 61–219; TEMP 36.6–37.3; O2SAT 32–100; BMI 36.6
[2024-11-13 14:34] LABS: Basophils Percent Auto 0.3 % (0.2-1.2); Eosinophils Absolute Auto 0.1 K/mm3 (0-0.3); Eosinophils Percent Auto 0.6 % (0-4.4); Hematocrit 39.8 % (37.0-47.0); Hemoglobin 13.5 g/dL (12.0-15.0); Immature Granulocyte Absolute 0.14 K/mm3 (0.00-0.031); Lymphocytes Percent Auto 16.5 % (18.3-44.2); Mean Corpuscular HGB Conc 33.9 g/dl (32-36); Mean Corpuscular Hemoglobin 28.9 pg (26-34); Mean Corpuscular Volume 85.2 fl (80-100); Mean Platelet Volume 10.1 fl (7.4-10.4); Monocytes Percent Auto 7.3 % (2.6-8.5); Neutrophils Absolute Auto 9.9 K/mm3 (1.3-6.7); Neutrophils Percent Auto 74.3 % (45.5-73.1); Platelet Count Result 319 k/mm3 (150-375); Red Blood Count 4.67 M/mm3 (4.2-5.4); Red Cell Distribution Width 12.8 % (11.5-14.5); White Blood Count 13.4 K/mm3 (4.5-10.0)
[2024-11-13 14:45] LABS: Alanine Aminotransferase 15 U/L (6-35); Albumin Level 3.7 g/dL (3.5-5.1); Alkaline Phosphatase 149 U/L (38-126); Anion Gap 13 mmol/L (4-12); Aspartate Amino Transferase 20 U/L (14-36); Bilirubin,Total 0.4 mg/dL (0.2-1.3); Blood Urea Nitrogen 11 mg/dL (7-17); Calcium 9.3 mg/dL (8.4-10.2); Carbon Dioxide 16 mmol/L (22-30); Chloride 105 mmol/L (98-107); Estimated Glomerular Filt Rate > 60; Glucose 89 mg/dL (65-110); Potassium 3.8 mmol/L (3.4-5.0); Sodium 134 mmol/L (137-145); Uric Acid 4.7 mg/dL (2.5-7.5)
[2024-11-13] MEDS: OXYTOCIN 30 UNITS/NS 500 ML 30 UNITS/500 ML BAG IV CONT (14:58)
[2024-11-13] MEDS: LACTATED RINGERS 1,000 ML 125 ML IV CONT ×2 (14:58→23:51)
[2024-11-13] MEDS: AMPICILLIN 2 GM/NS 100 ML 2 GM/100 ML BAG IVPB (14:59)
--- NOTE | 2024-11-13 15:10 | LDADM ---
This patient, Delilah Howell, was admitted to Labor/Delivery/Recovery 108 on 11/13/24 at 13:38. Plans for labor, pain management and were discussed with patient. Patient/family oriented to hospital policies and general routines including ID bracelet, bed and alarms, visiting hours, pain management, procedures, bathroom and other care routines, personal items, smoking policy, room service/diet and guest tray routines, infant security routines, and visiting hours. Patient/Family are encouraged to report perceived risks to care and to ask questions if they do not understand what they are told or what they should do. See OBIX for further documentation.
[2024-11-13 15:11] LABS: Syphilis IgG/IgM Antibody Negative (Negative)
[2024-11-13 15:24] LABS: HIV 1/2 Ab P24 Ag Result Negative (Negative)
--- OUTSIDE RECORDS SUMMARY | 2024-11-13 15:40 | XMS_ITS | Encounter Summary ---
Author Organization [facility] Address [facility] [place] [address] Care Team Providers Care Process Mold Technician Name Role Phone None, Provider Primary Care Provider Obdulia Aleman [facility] Primary Care Provider + Encounter Details Date Type Department Care Team (Late st Contact Info) Description 10/20/2023 CompareAway Message [facility] [address] [place] [address] [place] [address] [place] [address] Leg Infection Followup Social History Tobacco Use Types Packs/Day Years Used Date Smoking Tobacco: Never Passive Smoke Exposure: Never Smokeless Tobacco: Never PHQ-2 Answer Date Recorded Patient Health Questionnaire-2 Score 0 10/19/2023 Comments Unknown Sex and Gender Information Value Date Recorded Sex Assigned at Female 09/25/2024 7:32 AM MECHANICAL OPERATOR Legal Sex Female 6:32 PM CDT Gender Identity Female 09/25/2024 7:32 AM MECHANICAL OPERATOR Sexual Orientation Not on file documented as of this encounter Plan of Treatment Not on file documented as of this encounter Visit Diagnoses Not on filedocumented in this encounter Additional Health Concerns Infection Onset Date Last Indicated Resolved Time COVID-19 Rule Out 10/21/2023 10/21/2023 10/21/2023 9:25 AM MECHANICAL OPERATOR documented as of this encounter Care Teams Process Mold Technician Relationship Specialty Start Date End Date None, Provider, PCP - General UNKNOWN PHYSICIAN SPECIALTY 09/03/23 Obdulia Jean, LABOR REPRESENTATIVE- [address] [place] [address] PCP - General NURSE PRACTITIONER 10/22/23 documented as of this encounter
--- OUTSIDE RECORDS SUMMARY | 2024-11-13 15:40 | XMS_ITS | Clinical Summary ---
Author Organization [facility] Address Pending sale to [facility] [place] [address] Care Team Providers Care Re Examiner Name Role Phone Obdulia Jean Bharat [facility] Primary Care Provider + Allergies Active [...] Department Care Team Description 09/25/2024 9:40 AM [employer] Office Visit [address] [place] [address] Obdulia Jean, BOX STACKER- Cellulitis (Poss cellulitis on L leg. Did get bigger from Wednesday but mentions that the size has slowed down since this. ) 09/25/2024 Travel 09/14/2024 6:19 AM [employer] - 09/14/2024 11:59 PM [employer] Hospital Encounter [facility] [address] [place] [id number] Evelin Sullivan MD Discharge Disposition: Home or Self Care (Routine Discharge) 09/14/2024 Orders Only [facility] [address] [place] [id number] Evelin Sullivan MD 09/14/2024 Travel 09/08/2024 6:35 AM [employer] - 09/08/2024 11:59 PM [employer] Hospital Encounter [address] [address] Olga Marinelli, JAIR Discharge Disposition: Home or Self Care (Routine Discharge) 09/08/2024 Orders Only [facility] [address] [place] [id number] Olga Marinelli CNM 09/08/2024 Travel from Last [...] Sex Assigned at Female 09/25/2024 7:32 AM [employer] Legal Sex Female 6:32 PM CDT Gender Identity Female 09/25/2024 7:32 AM [employer] Sexual Orientation Not on file Last Filed Vital Signs Vital Sign Reading Time Taken Comments Blood Pressure 121/75 09/25/2024 9:35 AM [employer] Pulse 64 09/25/2024 9:35 AM [employer] Temperature 36.1 C (97 F) 09/25/2024 9:35 AM [employer] Respiratory Rate 22 09/25/2024 9:35 AM [employer] Oxygen Saturation 98% 09/25/2024 9:35 AM [employer] Inhaled Oxygen Concentration - - Weight 112.1 kg (247 lb 2 oz) 09/25/2024 9:35 AM [employer] Height 180.3 cm (5' 11 ) 09/25/2024 9:35 AM [employer] Body Mass Index 34.47 09/25/2024 9:35 AM [employer] Plan of Treatment Health Maintenance Due Date [...] 1995 Hepatitis C Completed 05/26/2024 PHQ-2 (Physician [place]) Completed 09/25/2024 HPV Vaccines Aged Out No [...] TOLERANCE ADDL SPEC Routine 09/14/2024 9:33 AM [employer] GLUCOSE TOLERANCE 2 HR OB Routine 09/14/2024 8:34 AM [employer] GLUCOSE TOLERANCE 1 HR OB Routine 09/14/2024 7:40 AM [employer] GLUCOSE TOLERANCE TEST 3 HR Routine 09/14/2024 6:35 AM [employer] Encounter for supervision of normal first in third trimester ([facility] HEMOGLOBIN AND HEMATOCRIT Routine 09/08/2024 7:54 AM [employer] screening encounter ([facility]) GLUCOSE 1 HR PP Routine 09/08/2024 7:54 AM [employer] screening encounter ([facility]) SYPHILIS AB (DIAGNOSTIC) WITH CASCADING REFLEX Routine 09/08/2024 7:54 AM [employer] screening encounter ([facility]) VITAMIN D, 25 OH Routine 09/08/2024 7:54 AM [employer] screening encounter ([facility]) HIV 1 ANTIGEN(S), WITH HIV-1 AND HIV-2 ANTIBODIES Routine 09/08/2024 7:54 AM [employer] screening encounter ([facility]) HEPATITIS C ANTIBODY Routine 05/26/2024 6:47 AM CDT Encounter for screening of mother (HHS/HCC) from Last 3 Months or Most Recently Relevant to Health Maintenance Results * GLUCOSE TOLERANCE TEST, 3HR OB (09/14/2024 9:33 AM [employer]) GLUCOSE 3 HR 62 mg/dL 09/14/2024 10:27 AM [employer] [facility] 09/14/2024 9:33 AM [employer] us Evelin Sullivan MD LABORATORY Final Res ult [facility] [address] [place] [address], [place] [phone] * GLUCOSE TOLERANCE 2 HR OB (09/14/2024 8:34 AM [employer]) GLUCOSE 2 HR 119 mg/dL 09/14/2024 9:15 AM [employer] [facility] 09/14/2024 8:34 AM [employer] us Evelin Sullivan MD LABORATORY Final Res ult [facility] [address] [place] [address], [place] [phone] * GLUCOSE TOLERANCE 1 HR OB (09/14/2024 7:40 AM [employer]) GLUCOSE 1 HR 152 mg/dL 09/14/2024 8:39 AM [employer] [facility] 09/14/2024 7:40 AM [employer] us Evelin Sullivan MD LABORATORY Final Res ult [facility] [address] [place] [address], [place] [phone] * GLUCOSE TOLERANCE TEST 3 HR GESTATIONAL (09/14/2024 6:35 AM [employer]) GLUCOSE FASTING 83 70 - 99 mg/dL 09/14/2024 8:20 AM [employer] [facility] AMOUNT GIVEN 100 g 09/14/2024 8:20 AM [employer] [facility] PATHOLOGIST COMMENT 09/14 8:20 AM [employer] [facility] Comment: INTERPRETATION CRITERIA : CRITERIA FOR THE DIAGNOSIS OF GESTATIONAL DIABETES GLUCOSE TOLERANCE: FASTING GLUCOSE > 95 1HR GLUCOSE >180 2HR GLUCOSE >155 3HR GLUCOSE >140 NOTE:TWO OR MORE LEVELS HIGHER THAN DIAGNOSTIC CRITERIA INDICATE GESTATIONAL DIABETES. (REFERENCES:[facility], [employer].) 09/14/2024 6:35 AM [employer] Evelin Sullivan MD LABORATORY Final Res ult Performing Organization Address City/[facility]/ZIP Co de Phone Number [facility] [address] [place] [address], [place] [phone] * SYPHILIS AB (DIAGNOSTIC) WITH CASCADING REFLEX (09/08/2024 7:54 AM [employer]) SYPHILIS IGG IGM AB NON-REACTI VE NON-REACTI VE 09/08/2024 2:55 PM [employer] [facility] Comment: No serologic evidence of syphilis. No follow-up necessary unless clinically indicated. 09/08/2024 7:54 AM [employer] Olga Marinelli CNM LABORATORY Final Result Performing Organization Address City/[facility]/ZIP Co de Phone Number [facility] [address] [place] [address], [place] [phone] * (ABNORMAL) GLUCOSE 1 HR PP (09/08/2024 7:54 AM [employer]) GLUCOSE 1 HOUR POST DOSE 179(H) <130 MG/DL 09/08/2024 8:42 AM [employer] [facility] Comment:NORMAL ESTABLISHED F OR PATIENTS 09/08/2024 7:54 AM [employer] Olga BACH LABORATORY Final Result [facility] [address] [place] [address], [place] [phone] * HIV 1 ANTIGEN(S), WITH HIV-1 AND HIV-2 ANTIBODIES (09/08/2024 7:54 AM [employer]) HIV 1/2 AB+ HIV1 P24 AG NON-REACTI VE NON-REACTI VE 09/08/2024 3:28 PM [employer] [facility] 09/08/2024 7:54 AM [employer] Olga BACH LABORATORY Final Result Performing Organization Address City/[facility]/ZIP Co de Phone Number [facility] [address] [place] [address], [place] [phone] * HEMOGLOBIN AND HEMATOCRIT (09/08/2024 7:54 AM [employer]) HGB 13.0 12.0 - 16.0 G/DL 09/08/2024 8:44 AM [employer] [facility] HCT 39.4 38.0 - 48.0 % 09/08/2024 8:44 AM [employer] [facility] 09/08/2024 7:54 AM [employer] Olga BACH LABORATORY Final Result [facility] [address] [place] [address], [place] [phone] * VITAMIN D, 25 OH (09/08/2024 7:54 AM [employer]) VITAMIN D 25 HYDROXY S/P/B 40 30 - 100 NG/ML 09/08/2024 9:16 AM [employer] [facility] Comment: INTERPRETATION DEFICIENT <20 INSUFFICIENT 20-29 SUFFICIENT 30-100 09/08/2024 7:54 AM [employer] Olga Marinelli [facility] LABORAT[facility] Final Result [facility] [address] [place] [address], * HEPATITIS C ANTIBODY (05/26/2024 6:47 AM CDT) Pathologist [facility] HEPATITIS C AB NON-REACTI VE NON-REACTI VE 05/26/2024 3:40 PM CDT [facility] 05/26/2024 6:47 AM CDT Olga Marinelli [facility] Final Result [facility] [address] [place] [address], [place] [phone] from Last 3 Months or Most Recently Relevant to Health Maintenance Insurance Care Teams Re Examiner Relationship Specialty Start Date End Date Obdulia Jean, BOX STACKER- [address] [place] [address] PCP - General NURSE PRACTITIONER 10/22/23
--- NOTE | 2024-11-13 17:24 | WPDOBADMIT ---
Obstetrics - Admit Note Admission Note: record reviewed. Pertinent additions to the history and/or any subsequent changes in the physical findings that are not consistent with the expected course of the were found. Additions to the history and/or subsequent changes in the physical findings follow. Here at 37 1/7 wks for MIL secondary to preeclampsia. Cervix 1-270/-2 posterior. AROM with clear fluid. Cat I tracing.
--- NOTE | 2024-11-13 18:54 | P.PNAN_ITS ---
Anes - Eval Pre Procedure Procedure: labor epidural Date/Time: 11/13/24 18:54 Surgeon: jos Preop Diagnosis: pain druing labor Pre Op Diagnosis: IOL Patient Data Age: 29 Gender: F Height: 1.8 m Weight: 119 kg Last Vital Signs Temp 37.1 C 11/13/24 17:30 Pulse 76 11/13/24 18:30 BP 136/76 11/13/24 18:30 O2 Del Method Room Air 11/13/24 15:08 Allergies Allergy/AdvReac Type Severity Reaction Status Date / Time ciprofloxacin (From Cipro) Allergy Intermediate unknown Verified 11/09/24 11:21 sulfamethoxazole Allergy Mild unknown Verified 11/09/24 11:21 trimethoprim Allergy Mild unknown Verified 11/09/24 11:21 Home Medications ?Medication ?Instructions ?Recorded ?Confirmed ?Type aspirin 81 mg capsule 81 mg PO DAILY 11/04/24 11/13/24 History cholecalciferol (vitamin D3) 25 25 mcg PO DAILY 11/04/24 11/13/24 History mcg (1,000 unit) capsule (Vitamin D3) polyethylene glycol 3350 17 17 g PO DAILY 11/04/24 11/13/24 History gram/dose oral powder (ClearLax) vit no.95-ferrous 1 tablet PO DAILY 11/04/24 11/13/24 History fumarate 28 mg-folic acid 800 mcg tablet () Laboratory Tests 11/13/24 11/13/24 14:23 14:23 WBC 13.4 H K/mm3 (4.5-10.0) RBC 4.67 M/mm3 (4.2-5.4) Hgb 13.5 g/dL (12.0-15.0) Hct 39.8 % (37.0-47.0) MCV 85.2 fl (80-100) MCH 28.9 pg (26-34) MCHC 33.9 g/dl (32-36) RDW 12.8 % (11.5-14.5) Plt Count 319 k/mm3 (150-375) MPV 10.1 fl (7.4-10.4) Immature Gran % (Auto) 1.0 H % (0-0.5) Neut % (Auto) 74.3 H % (45.5-73.1) Lymph % (Auto) 16.5 L % (18.3-44.2) [place] % (Auto) 7.3 % (2.6-8.5) Eos % (Auto) 0.6 % (0-4.4) Baso % (Auto) 0.3 % (0.2-1.2) Lymph # (Auto) 2.20 K/mm3 (0.9-3.2) [place] # (Auto) 1.0 H K/mm3 (0.1-0.6) Eos # (Auto) 0.1 K/mm3 (0-0.3) Baso # (Auto) 0.0 K/mm3 (0.0-0.1) Abs Immat Gran (auto) 0.14 H K/mm3 (0.00-0.031) Absolute Neuts (auto) 9.9 H K/mm3 (1.3-6.7) Absolute Nucleated RBC 0.000 K/mm3 (0.0-0.012) Nucleated RBC % 0.0 % (0.0-0.2) Sodium 134 L mmol/L (137-145) Potassium 3.8 mmol/L (3.4-5.0) Chloride 105 mmol/L (98-107) Carbon Dioxide 16 L mmol/L (22-30) Anion Gap 13 H mmol/L (4-12) BUN 11 mg/dL (7-17) Creatinine 0.71 mg/dL (0.7-1.0) Estim Creat Clear Calc Not Reportable Estimated GFR > 60 (59 - ) Glucose 89 mg/dL (65-110) Uric Acid Cancelled 4.7 mg/dL (2.5-7.5) Calcium 9.3 mg/dL (8.4-10.2) Total Bilirubin 0.4 mg/dL (0.2-1.3) AST 20 U/L (14-36) ALT 15 U/L (6-35) Alkaline Phosphatase 149 H U/L (38-126) Total Protein 7.0 g/dL (6.3-8.2) Albumin 3.7 g/dL (3.5-5.1) Syphilis IgG/IgM Ab Negative (Negative) HIV 1&2 Ab/P24 Ag 4thGn Negative (Negative) Blood Type A Positive Antibody Screen Negative Patient hx anesthesia problems: none Family hx anesthesia problems: none Results Review: All pre-operative results and documents have been reviewed as part of the pre-operative evaluation. [facility] Past Medical History Medical History (Updated 11/13/24 @ 18:55 by Wilma Mena CRNA) Obesity (BMI 30-39.9) Asthma IUP (intrauterine ), incidental Family History Family History (Updated 11/04/24 @ 08:06 by Leigh Price RN) Mother Hodgkins lymphoma Gestational diabetes Preeclampsia Diabetes mellitus Grandparent Breast cancer Grandparent Pancreatic cancer Sibling Melanoma Father Melanoma Social History Social History Smoking status: Never smoker Second hand tobacco smoke exposure: No Substance use: never Do You Feel Safe in your Home?: Yes Lack of Transportation: No Lack of Food: Never True Current Housing: I Have Housing Concerned About Future Housing: No Difficulty Paying Gas/Electric Bills: No Difficulty Paying for Meds: No Currently Unemployed: No Education: Master's Degree or Higher Difficulty w/ Childcare or Family Care: No Spiritual care concerns: No Exam Day of Procedure 11/13/24 18:54
[2024-11-13] MEDS: AMPICILLIN 1 GM/NS 50 ML 1 GM/50 ML BAG IVPB ×2 (19:56→23:55)
[2024-11-14] VITALS (137 sets, daily range): BP systolic 92–157; BP diastolic 32–131; PULSE 25–202; RESP 14–18; TEMP 36.4–37.7; O2SAT 71–100
[2024-11-14] MEDS: ONDANSETRON INJ 4 MG/2 ML VIAL IV PUSH (00:54)
[2024-11-14] MEDS: LACTATED RINGERS 1,000 ML 125 ML IV CONT (01:08)
[2024-11-14] MEDS: AMPICILLIN 1 GM/NS 50 ML 1 GM/50 ML BAG IVPB (04:44)
[2024-11-14] MEDS: CALCIUM CARBONATE (TUMS) 500 MG (200 MG ELEMENTAL) PO (04:44)
--- NOTE | 2024-11-14 06:03 | PM.OBPRVD ---
OB - Vaginal Delivery Note Procedure Delivery date: 11/14/24 Events: Preeclampsia w/o severe features Induction method: AROM and Per Pitocin Protocol Delivery monitor: External FHT and Internal Uterine Route of delivery: Laceration Description: Perineal - 2nd Degree Delivery repair: vicryl (3-0) Specimen: Yes (placenta) Quantitative Blood Loss (ml): 300 Anesthesia type: Epidural Disposition: Floor Complications: No immediate complications Baby Date of : 11/14/24 Gestational Age by Date: 37 Infant gender: Male presentation: vertex position: Right Occiput Anterior Placenta delivery description: Spontaneous Cord Vessel Description: 3 Vessels and Delayed Cord Clamping score one minute: 8 score five minutes: 9
--- NOTE | 2024-11-14 06:04 | P.DS_ITS ---
DS: Admitting Diagnosis Discharge Date 11/16/24 Admitting Diagnosis IUP 37 1/ preeclampsia OB - DS: Summary OB Procedures : PIH Mgmt and Ultrasound OB Procedures Intrapartum: Spontaneous Vag Delivery OB Procedures: : None Peripartum Data Infant Delivery Method: Natural Vaginal Laceration Description: Perineal - 2nd Degree complications: none Status at Discharge Functional status at discharge: independent ambulation Overall status at discharge: patient is progressing back to baseline Time Spent with Patient Time attestation: Total time spent providing and/or coordinating discharge services: DS: Data Data Completed and Pending Labs on day of discharge: Labs from last 24 hours 11/13/24 11/13/24 14:23 14:23 WBC 13.4 H RBC 4.67 Hgb 13.5 Hct 39.8 MCV 85.2 MCH 28.9 MCHC 33.9 RDW 12.8 Plt Count 319 MPV 10.1 Immature Gran % (Auto) 1.0 H Neut % (Auto) 74.3 H Lymph % (Auto) 16.5 L [place] % (Auto) 7.3 Eos % (Auto) 0.6 Baso % (Auto) 0.3 Lymph # (Auto) 2.20 [place] # (Auto) 1.0 H Eos # (Auto) 0.1 Baso # (Auto) 0.0 Abs Immat Gran (auto) 0.14 H Absolute Neuts (auto) 9.9 H Absolute Nucleated RBC 0.000 Nucleated RBC % 0.0 Sodium 134 L Potassium 3.8 Chloride 105 Carbon Dioxide 16 L Anion Gap 13 H BUN 11 Creatinine 0.71 Estim Creat Clear Calc Not Reportable Estimated GFR > 60 Glucose 89 Uric Acid 4.7 Cancelled Calcium 9.3 Total Bilirubin 0.4 AST 20 ALT 15 Alkaline Phosphatase 149 H Total Protein 7.0 Albumin 3.7 Syphilis IgG/IgM Ab Negative HIV 1&2 Ab/P24 Ag 4thGn Negative Blood Type A Positive Antibody Screen Negative Discharge Plan Discharge Attending physician on discharge: Evelin Sullivan Discharging Clinician: Evelin Sullivan Anticipated Discharge Date/Time: 11/16/24 06:05 Patient Disposition: Home, Self-Care Activity: may shower and pelvic rest Diet: regular Patient Instructions: Antibiotic Form Patient Language: Setswana Stand Alone Forms: General Discharge Information Follow-up/Referrals: Evelin Sullivan MD [Physician] - 1 Week (1 week BP 6 week PP) Discharge Medications: New norethindrone (contraceptive) 0.35 mg tablet 0.35 mg PO DAILY Qty: 84 3RF Continued PNV cmb#95-ferrous fumarate-FA [] 28 mg iron- 800 mcg tablet 1 tablet PO DAILY cholecalciferol (vitamin D3) [Vitamin D3] 25 mcg (1,000 unit) capsule 25 mcg PO DAILY Discontinued aspirin 81 mg capsule 81 mg PO DAILY polyethylene glycol 3350 [ClearLax] 17 gram/dose powder 17 g PO DAILY Date of admission: 11/13/24 13:38 Primary Care Provider: PHYSICIAN NOT ON STAFF,NONSTAFF Admitting Provider: Evelin Sullivan Attending physician on admission: Evelin Sullivan Condition: Stable
[2024-11-14] MEDS: IBUPROFEN 600 MG TABLET PO ×2 (09:27→17:14)
[2024-11-14] MEDS: MULTIVIT/MIN/PREN/FOL AC/IRON TABLET 1 TAB PO (10:35)
[2024-11-14] MEDS: DOCUSATE SODIUM 100 MG CAPSULE PO ×2 (10:35→17:15)
[2024-11-14] MEDS: DIBUCAINE 1% OINTMENT 30 GM TUBE 1 APPLIC TOPICAL (10:36)
[2024-11-14] MEDS: ACETAMINOPHEN 325 MG TABLET 650 MG PO ×2 (10:36→17:15)
--- NOTE | 2024-11-14 10:40 | PC.NURSE ---
1040- Primary RN called for assistance with feeding. Baby ate well after delivery for 40 minutes. It has been 4 hours since he last ate. We attempted to unwrap and wake him up to feed. He will cry vigorously but will not make any attempt to latch. Mom placed him skin to skin to calm him and will keep him there for the next 15-30 minutes. If he begins to give any feeding cues, mom will call out for assistance. 1115- To patient room to see if baby is more awake and ready to feed. He is still sleepy but does give a few open mouths. He never creates a seal or maintains a latch during this attempt. Mom did try to hand express some drops of colostrum without success. Mom is educated that if baby goes longer than six hours without eating, we would check a blood sugar to ensure it isn't low. Mom is given the option to initiate pumping at this time. She has her own Spectra pump. Pump set up with the 24mm flange. Patient only brought one set of tubing and flanges so she will just pump one breast at a time for now. Mother shown how to place flanges, use appropriate pump settings, and how to use/store breast milk. Advised parents to clean pump parts after each pumping session. Mother was unable to express any colostrum with the pump at this time. Primary RN will check a blood sugar.
--- NOTE | 2024-11-14 12:03 | OBPPTRN ---
Patient and baby transferred to post room #290 via (wheelchair). Support person present. Oriented to unit, room, information board, rooming in, admission packet and security measures. Patient verbalizes understanding.
--- NOTE | 2024-11-14 16:00 | PC.NURSE ---
Infant is [greater than 12 hours old & high risk for ineffective due to 37 weeks gestation] and has not fed [effectively at breast in more than 6 hours]. Initiated a feeding plan for with a provider order (Dr. Dubois) for formula supplementation. Mother is instructed to pump (with her pump from home) after every or attempt. Mother should only attempt for 10-15 minutes at breast before moving on to supplementation. Support person can feed baby 15ml of pumped milk or formula while mother is pumping. Instructed parents on keeping breast milk at the bedside until the next feeding or for up to 4 hours. Reviewed the feeding plan with both parents and they are receptive. Reported to Primary RN.?
[2024-11-15] VITALS (7 sets, daily range): BP systolic 120–133; BP diastolic 67–80; PULSE 60–67; RESP 16–18; TEMP 36.4–36.7; O2SAT 98–100
[2024-11-15] MEDS: ACETAMINOPHEN 325 MG TABLET 650 MG PO ×2 (03:35→19:45)
[2024-11-15 05:01] LABS: Hematocrit 34.4 % (37.0-47.0); Hemoglobin 11.1 g/dL (12.0-15.0)
--- NOTE | 2024-11-15 07:59 | P.PNOB_ITS ---
OB - PN: Subj Subjective Date/time seen: 11/15/24 07:59 Patient comments: no complaints, pain well controlled and other (No preeclampsia symptoms) [place] baby status: doing well OB - PN: Obj Data Labs 11/15/24 03:37 11/13/24 14:23 Labs: Laboratory Results - last 24 hr 11/15/24 03:37 Hgb 11.1 L Hct 34.4 L OB - PN A/P Assessment and Plan (1) Preeclampsia: Code(s): O14.90 - Unspecified pre-eclampsia, unspecified trimester Status: Acute Assessment and Plan: Bp's good. Starting diuresis Plan day: 1 Plan: routine care Time Spent With Patient Time: Total time spent is greater than 50% in coordination of care (as documented) at patient's floor/unit and/or counseling patient: Exam 2 : Bimanual exam- vagina & uterus: other (Uterus firm, nt @U)
[2024-11-15] MEDS: DOCUSATE SODIUM 100 MG CAPSULE PO (08:48)
[2024-11-15] MEDS: MULTIVIT/MIN/PREN/FOL AC/IRON TABLET 1 TAB PO (08:48)
[2024-11-15] MEDS: IBUPROFEN 600 MG TABLET PO ×2 (08:48→23:45)
--- NOTE | 2024-11-15 09:30 | PC.NURSE ---
Patient called out for a latch check. Baby is doing so much better with latching and feeding today. He opens wide and eagerly. Mom likes to hold him in football and she is able to bring him in close to latch. She can tell the difference between a shallow and a deep latch. She has some nipple tenderness, especially with latch on. Her nipples appear slightly reddened with skin intact. We reviewed how to know is 'getting something' as well as discussing continuation of the feeding plan with formula supplementation until her milk is in. Mom is in good spirits today and feels positive and hopeful now that baby is latching to the breast. Dad is very supportive and helpful. Updated RN.
[2024-11-16 04:35] VITALS: BP 131/87; PULSE 60; RESP 18; O2SAT 99
--- NOTE | 2024-11-16 07:51 | P.PNOB_ITS ---
OB - PN: Subj Subjective Date/time seen: 11/16/24 07:51 Patient comments: no complaints baby status: doing well OB - PN: Obj Data Labs 11/15/24 03:37 11/13/24 14:23 OB - PN A/P Assessment and Plan (1) Preeclampsia: Code(s): O14.90 - Unspecified pre-eclampsia, unspecified trimester Status: Acute Assessment and Plan: stable Plan day: 2 Plan: routine care and discharge home Time Spent With Patient Time: Total time spent is greater than 50% in coordination of care (as documented) at patient's floor/unit and/or counseling patient: Exam 2 : Bimanual exam- vagina & uterus: other (Uterus firm, nt @U)
[2024-11-16 08:00] VITALS: BP 130/85; PULSE 79; RESP 18; TEMP 36.4; O2SAT 98
[2024-11-16] MEDS: IBUPROFEN 600 MG TABLET PO (08:16)
[2024-11-16] MEDS: MULTIVIT/MIN/PREN/FOL AC/IRON TABLET 1 TAB PO (08:17)
[2024-11-16] MEDS: DOCUSATE SODIUM 100 MG CAPSULE PO (08:17)
--- NOTE | 2024-11-16 08:35 | PC.NURSE ---
Ok to not do follow up tomorrow at [facility] per Dr. Sullivan. Patient will be seen in office in one week.
--- NOTE | 2024-11-16 09:45 | PC.NURSE ---
Consulted with mother concerning needs and she shared her ability to independently latch infant optimally without pain. Mother plans to put baby to breast, use her breast pump and also supplement until her mature milk is in and baby is satisfied just at the breast. Mother is feeding appropriately for growth of and understands stimulating to eat if needed. has had appropriate feedings in the last 24 hours meets the outcomes for weight, output, blood sugar and jaundice at this time. Reinforced understanding of milk production, transition of milk, signs of adequate intake, transition of stool, prevention/relief of engorgement, plugged ducts, mastitis, responsive watching for feeding cues, the different methods of stimulating to breastfeed 1-3 hours after the start of the last feeding, community resources, and when to call a provider using the resource of the feeding sheet along with the mom and baby guide. Mother voiced understanding of the information shared, is confident to continue effectively her at home, when to call for assistance, denies any additional assistance or education at this time. Reported to the Primary RN.
== END 2024-11-16 11:37 | disposition home or self-care (01) | DRG 807 ==
LOC: ANHLDR 11-14 06:05 → ANHOB2 11-14 08:55
PROVIDERS: Admitting Provider Obstetrics & Gynecology Gynecology; Visit Provider Obstetrics & Gynecology Gynecology
DX: O14.04 Mild to moderate pre-eclampsia, complicating childbirth (principal); Z37.0 Single live birth; O70.1 Second degree perineal laceration during delivery; O99.824 Streptococcus B carrier state complicating childbirth; Z3A.37 37 weeks gestation of pregnancy
CPT/HCPCS: 36415; 80053; 84550; 85014; 85018; 85025; 86593; 86703; 86850; 86900; 86901; 88307; A9270; G0432; J0290; J2405; J2590; J2795; J7120